=== PATIENT | male | born 1935 | race Caucasian/White ===

== ENCOUNTER 2021-08-22 15:53 | Inpatient (IN) | payer OTHER, MEDICARE ==
[~2021-08-22] VITALS: Ht 188 cm; Wt 82.4 kg
[2021-08-22 17:15] LABS: EOSINOPHILS % (AUTO) 0 % (0-6); LYMPHOCYTES # (AUTO) 0.4 X10'3 (1.1-4.8); MEAN CORPUSCULAR HGB CONC 33.9 g/dL (33.0-36.5); MONOCYTES # (AUTO) 0.3 X10'3 (0-0.9); RED BLOOD COUNT 3.35 X10'6 (4.70-6.10)
[2021-08-22 17:16] LABS: BASOPHILS % (AUTO) 0.3 % (0-1); HEMATOCRIT 36.8 % (42.0-52.0); HEMOGLOBIN 12.5 g/dl (14.0-17.9); LYMPHOCYTES % (AUTO) 6.4 % (21-51); MEAN CORPUSCULAR HEMOGLOBIN 37.2 PG (27.0-31.0); MEAN CORPUSCULAR VOLUME 109.9 FL (78-98); MEAN PLATELET VOLUME 9.8 FL (7.4-10.4); MONOCYTES % (AUTO) 6.1 % (2-12); NEUTROPHILS % (AUTO) 87.2 % (42-75); PLATELET COUNT 233 X10'3 (140-440); RED CELL DISTRIBUTION WIDTH 18.3 % (11.5-14.5); WHITE BLOOD COUNT 5.7 X10'3 (4.5-11.0)
[2021-08-22 17:36] LABS: ALANINE AMINOTRANSFERASE 46 U/L (12-78); ALBUMIN 3.2 G/DL (3.4-5.0); ALBUMIN/GLOBULIN RATIO 0.8 (1.1-1.5); ALKALINE PHOSPHATASE 147 IU/L (46-116); ANION GAP 12 (8-16); ASPARTATE AMINO TRANSFERASE 65 U/L (10-37); BILIRUBIN,TOTAL 1.7 MG/DL (0.1-1.0); BLOOD UREA NITROGEN 25 MG/DL (7-18); BUN/CREATININE RATIO 21.2 (5.4-32.0); CALCIUM 8.3 MG/DL (8.5-10.1); CHLORIDE 99 MMOL/L (99-107); CREATININE 1.18 MG/DL (0.60-1.10); GLUCOSE 108 MG/DL (70-104); MAGNESIUM 2.5 MG/DL (1.5-2.4); POTASSIUM 4.2 MMOL/L (3.5-5.1); SODIUM 132 MMOL/L (135-145); TOTAL CARBON DIOXIDE 21.2 MMOL/L (24-32); TOTAL PROTEIN 7.4 G/DL (6.4-8.2); eGFR 59 ML/MIN
[2021-08-22] MEDS ORDERED: dexamethasone sod phosphate 10mg/ml inj IV STA (17:48)
[2021-08-22] MEDS ORDERED: CefTRIAXone/D5W-Rocephin 1gm 50 ML IV ONE (17:50)
[2021-08-22] MEDS ORDERED: normal saline 1000ML IV soln IV ONE (17:50)
[2021-08-22] MEDS ORDERED: azithromycin/NS 500mg/250ml 250 ML IV ONE (17:50)
[2021-08-22 18:16] LABS: ANISOCYTOSIS 2+; HYPERSEGMENTED NEUTROPHILS 1+; PLATELET ESTIMATE NORMAL; TOTAL CELLS COUNTED 100
[2021-08-22 18:17] LABS: ELLIPTOCYTES FEW
[2021-08-22 18:28] LABS: LARGE PLATELETS FEW
[2021-08-22] MEDS ORDERED: potassium Cl 20 mEq SR tablet PO PRN ×2 (19:00)
[2021-08-22] MEDS ORDERED: acetaminophen 325mg tablet PO PRN (19:00)
[2021-08-22] MEDS ORDERED: magnesium 2GM in 50ml NS 50 ML IV PRN (19:00)
[2021-08-22] MEDS ORDERED: potassium CL 10mEq/100ml bag 100 ML IV PRN (19:00)
[2021-08-22] MEDS ORDERED: HYDROcodone/acetaminophen 5mg/325mg tablet PO PRN (19:00)
[2021-08-22] MEDS ORDERED: magnesium Cl slow-release 64mg tablet PO PRN (19:00)
[2021-08-22] MEDS ORDERED: ondansetron/PF 4mg/2ml inj IV PRN (19:00)
[2021-08-22] MEDS ORDERED: magnesium 4gm in 100ml NS 100 ML IV PRN (19:00)
[2021-08-22 19:36] LABS: ABG BASE EXCESS -0.6 mmol/L (-2.0-2.0); ABG HCO3 21.5 mmol/L (22.0-26.0); ABG OXYGEN SATURATION 89.1 % (94-97); ABG PCO2 (T) 28.4 mmHg (35.0-48.0); ABG PO2 (T) 57.1 mmHg (75.0-100.0); ALLEN'S TEST POSITIVE; FCOHb 0.7 % (0.0-3.9); FLOW 13 L/min; FMetHb 0.3 % (0.0-1.5); FO2Hb 88.2 % (94-97); PATIENT TEMPERATURE 37.8; TOTAL HEMOGLOBIN 10.3 G/dl (14.0-18.0)
--- NOTE | 2021-08-22 19:50 | NUR ---
CALLED DR OLVERA WITH BLOOD GAS REPORTS. HE GIVES ORDER FOR BIPAP AND A REDRAW OF BLOOD GASES 45 MINUTES AFTER PLACING PT ON BIPAP. RESPIRATORY HAS BEEN PAGED
[2021-08-22] MEDS ORDERED: albuterol 2.5 MG/3 ML nebule NEB SCH (20:00)
[2021-08-22] MEDS: K and/or MAG REPLACEMENT MC SCH (20:00)
[2021-08-22] MEDS ORDERED: dexamethasone 4mg/ml inj IV SCH (20:00)
--- NOTE | 2021-08-22 20:24 | NUR ---
RT at bedside
--- NOTE | 2021-08-22 21:44 | NUR ---
RT at bedside drawing new ABG's
[2021-08-22] MEDS: heparin, porcine 5000 units/ml vial SQ SCH (21:54)
[2021-08-22 21:57] LABS: ABG HCO3 20.9 mmol/L (22.0-26.0); ABG OXYGEN SATURATION 96.9 % (94-97); ABG PCO2 (T) 26.6 mmHg (35.0-48.0); ABG PO2 (T) 94.1 mmHg (75.0-100.0); ALLEN'S TEST POSITIVE; FCOHb 0.7 % (0.0-3.9); FMetHb 0.3 % (0.0-1.5); FO2Hb 95.9 % (94-97); PATIENT TEMPERATURE 36.6; RESPIRATORY RATE 12 b/min; TOTAL HEMOGLOBIN 12.3 G/dl (14.0-18.0)
--- NOTE | 2021-08-22 22:03 | NUR ---
SPOKE WITH DR OLVERA CONCERNING PT'S NEW BLOOD GAS. HE GAVE A VO FOR 0.5 MG ATIVAN FOR HYPERVENTILATION. HE ALSO ORDERED A NEW ABG TO BE DRAWN IN 6 HRS. HE ALSO ORDERED TO KEEP PT ON BIPAP FOR NOW.
[2021-08-22] MEDS ORDERED: LORazepam 2 mg/ml vial IV ONE (22:05)
[2021-08-23 01:07] LABS: ABG BASE EXCESS 0.3 mmol/L (-2.0-2.0); ABG HCO3 24.1 mmol/L (22.0-26.0); ABG OXYGEN SATURATION 95.9 % (94-97); ABG PCO2 (T) 35.7 mmHg (35.0-48.0); ABG PO2 (T) 88.4 mmHg (75.0-100.0); ALLEN'S TEST Yes; FCOHb 0.3 % (0.0-3.9); FMetHb 0.3 % (0.0-1.5); FO2Hb 95.3 % (94-97); PATIENT TEMPERATURE 37.2; RESPIRATORY RATE 12 b/min; TOTAL HEMOGLOBIN 10.1 G/dl (14.0-18.0)
--- NOTE | 2021-08-23 01:24 | NUR ---
REVIEWED NEW ABG'S WITH DR OLVERA
[2021-08-23 03:04] VITALS: BP 114/69
--- NOTE | 2021-08-23 04:00 | NUR ---
Dr. Aguayo ok with patient not being on bipap UNLESS patient's respirations are over 25 and he is working to breathe. then pt will need to go back on bipap. bedside saturation monitoring with VS machine at doorway to be able to hear alarm at station.
[2021-08-23 04:34] LABS: EOSINOPHILS % (AUTO) 0 % (0-6); HEMOGLOBIN 10.7 g/dl (14.0-17.9); LYMPHOCYTES # (AUTO) 0.2 X10'3 (1.1-4.8); MONOCYTES # (AUTO) 0.1 X10'3 (0-0.9); MONOCYTES % (AUTO) 5.7 % (2-12); NEUTROPHILS # (AUTO) 1.3 X10'3 (1.8-7.7); WHITE BLOOD COUNT 1.6 X10'3 (4.5-11.0)
[2021-08-23 04:37] LABS: BASOPHILS % (AUTO) 0.5 % (0-1); HEMATOCRIT 31.9 % (42.0-52.0); LYMPHOCYTES % (AUTO) 14.2 % (21-51); MEAN CORPUSCULAR HEMOGLOBIN 37.1 PG (27.0-31.0); MEAN CORPUSCULAR HGB CONC 33.5 g/dL (33.0-36.5); MEAN CORPUSCULAR VOLUME 110.8 FL (78-98); MEAN PLATELET VOLUME 10.4 FL (7.4-10.4); NEUTROPHILS % (AUTO) 79.6 % (42-75); PLATELET COUNT 134 X10'3 (140-440); RED BLOOD COUNT 2.88 X10'6 (4.70-6.10); RED CELL DISTRIBUTION WIDTH 18.2 % (11.5-14.5)
[2021-08-23 04:46] LABS: ALANINE AMINOTRANSFERASE 37 U/L (12-78); ALBUMIN 2.5 G/DL (3.4-5.0); ALBUMIN/GLOBULIN RATIO 0.7 (1.1-1.5); ALKALINE PHOSPHATASE 117 IU/L (46-116); ANION GAP 9 (8-16); ASPARTATE AMINO TRANSFERASE 49 U/L (10-37); BILIRUBIN,TOTAL 1.1 MG/DL (0.1-1.0); BLOOD UREA NITROGEN 25 MG/DL (7-18); BUN/CREATININE RATIO 22.5 (5.4-32.0); CALCIUM 7.8 MG/DL (8.5-10.1); CHLORIDE 102 MMOL/L (99-107); CREATININE 1.11 MG/DL (0.60-1.10); GLUCOSE 189 MG/DL (70-104); POTASSIUM 4.2 MMOL/L (3.5-5.1); SODIUM 134 MMOL/L (135-145); TOTAL CARBON DIOXIDE 23.2 MMOL/L (24-32); TOTAL PROTEIN 5.9 G/DL (6.4-8.2); eGFR 63 ML/MIN
[2021-08-23 05:20] LABS: PLATELET ESTIMATE DECREASED; TOTAL CELLS COUNTED 100
[2021-08-23 05:21] LABS: LARGE PLATELETS FEW
[2021-08-23 05:22] LABS: ANISOCYTOSIS 2+
[2021-08-23 05:23] LABS: ELLIPTOCYTES FEW
[2021-08-23 05:28] LABS: GIANT PLATELET FEW; HYPERSEGMENTED NEUTROPHILS FEW
[2021-08-23 06:00] VITALS: BP 99/46
[2021-08-23] MEDS: albuterol 60 PUFF/8GM Inhaler IH SCH ×5 (07:00→23:14)
[2021-08-23] MEDS: K and/or MAG REPLACEMENT MC SCH ×2 (08:00→20:01)
[2021-08-23] MEDS: dexamethasone 6 MG/D5W 100ml IV.soln (total 101.5ml) IV SCH ×4 (08:07→20:02)
[2021-08-23] MEDS: CefTRIAXone 2gm/D5W 50ml BAG 50 ML IV SCH (08:15)
[2021-08-23] MEDS: heparin, porcine 5000 units/ml vial SQ SCH ×2 (08:16→20:00)
[2021-08-23 10:00] VITALS: BP 111/59
[2021-08-23] MEDS: azithromycin/NS 500mg/250ml 250 ML IV SCH (10:09)
[2021-08-23] MEDS ORDERED: ACET-2119 PO (11:59)
[2021-08-23] MEDS ORDERED: GUAI600T45 PO (11:59)
[2021-08-23 14:00] VITALS: BP 111/59
--- NOTE | 2021-08-23 14:19 | NUR ---
Malnutrition Consult: Pt admit DX COVID-19, bilateral PNA, and CKD III per EMR. Pt reports 14-23 pounds wt loss per RN Malnutrition Screen though pt also poor historian per MD note. Pt has no scaled wt this admit or prior scaled wt hx in EMR, appears WD/WN per ER note, has no significant weakness, and PO 50% first heart healthy meal this admit per EMR. Pt currently lacks minimum two malnutrition criteria. DAVE did d/w RN regarding liberalizing to regular diet if MD agreeable given age and pt low Serum Na 132-134mmol/L this admit per EMR. Will monitor for further nutrition intervention needs. Addendum: 08/23/21 at [address] Amended: Links added. Addendum: 08/23/21 at [address] UPDATE* Also noted pt MCV 110.8; DAVE paged regarding multivitamin supplementation if agreeable.
[2021-08-23 18:00] VITALS: BP 105/59
--- NOTE | 2021-08-23 18:50 | NUR ---
Problems reprioritized. Patient report given, questions answered & plan of care reviewed with BRYSON Garcia.
[2021-08-23 22:00] VITALS: BP 118/58
[2021-08-24 02:00] VITALS: BP 107/60
[2021-08-24] MEDS: albuterol 60 PUFF/8GM Inhaler IH SCH ×6 (03:00→23:00)
[2021-08-24 06:00] VITALS: BP 99/53
[2021-08-24 07:28] LABS: ALANINE AMINOTRANSFERASE 36 U/L (12-78); ALBUMIN 2.1 G/DL (3.4-5.0); ALBUMIN/GLOBULIN RATIO 0.5 (1.1-1.5); ALKALINE PHOSPHATASE 100 IU/L (46-116); ANION GAP 7 (8-16); ASPARTATE AMINO TRANSFERASE 65 U/L (10-37); BILIRUBIN,TOTAL 0.7 MG/DL (0.1-1.0); BLOOD UREA NITROGEN 32 MG/DL (7-18); CHLORIDE 106 MMOL/L (99-107); GLUCOSE 120 MG/DL (70-104); POTASSIUM 5.4 MMOL/L (3.5-5.1); SODIUM 133 MMOL/L (135-145); TOTAL CARBON DIOXIDE 20.5 MMOL/L (24-32)
[2021-08-24 07:49] LABS: CREATININE 0.82 MG/DL (0.60-1.10); eGFR 89 ML/MIN
[2021-08-24] MEDS: K and/or MAG REPLACEMENT MC SCH ×2 (08:00→19:19)
[2021-08-24] MEDS: heparin, porcine 5000 units/ml vial SQ SCH ×2 (09:16→19:53)
[2021-08-24] MEDS: CefTRIAXone 2gm/D5W 50ml BAG 50 ML IV SCH (09:17)
[2021-08-24] MEDS: dexamethasone 6 MG/D5W 100ml IV.soln (total 101.5ml) IV SCH ×4 (09:17→19:53)
[2021-08-24] MEDS: azithromycin/NS 500mg/250ml 250 ML IV SCH (09:17)
[2021-08-24 13:31] LABS: BASOPHILS % (AUTO) 0.1 % (0-1); EOSINOPHILS % (AUTO) 0 % (0-6); HEMATOCRIT 33.9 % (42.0-52.0); HEMOGLOBIN 11.4 g/dl (14.0-17.9); LYMPHOCYTES # (AUTO) 0.3 X10'3 (1.1-4.8); LYMPHOCYTES % (AUTO) 2.8 % (21-51); MEAN CORPUSCULAR HGB CONC 33.6 g/dL (33.0-36.5); MEAN CORPUSCULAR VOLUME 110.1 FL (78-98); MEAN PLATELET VOLUME 10.6 FL (7.4-10.4); MONOCYTES # (AUTO) 0.3 X10'3 (0-0.9); MONOCYTES % (AUTO) 2.6 % (2-12); NEUTROPHILS # (AUTO) 9.7 X10'3 (1.8-7.7); NEUTROPHILS % (AUTO) 94.5 % (42-75); PLATELET COUNT 190 X10'3 (140-440); RED BLOOD COUNT 3.08 X10'6 (4.70-6.10); RED CELL DISTRIBUTION WIDTH 18.6 % (11.5-14.5); WHITE BLOOD COUNT 10.2 X10'3 (4.5-11.0)
[2021-08-24 14:00] VITALS: BP 115/60
[2021-08-24 15:17] LABS: ANISOCYTOSIS 2+; HYPERSEGMENTED NEUTROPHILS 2+; LARGE PLATELETS FEW; PLATELET ESTIMATE NORMAL; TOTAL CELLS COUNTED 100
[2021-08-24 15:18] LABS: BURR CELLS 1+
[2021-08-25] MEDS: albuterol 60 PUFF/8GM Inhaler IH SCH ×6 (03:00→23:00)
[2021-08-25 06:00] VITALS: BP 111/64
[2021-08-25 07:59] LABS: LYMPHOCYTES # (AUTO) 0.2 X10'3 (1.1-4.8); MONOCYTES # (AUTO) 0.2 X10'3 (0-0.9); WHITE BLOOD COUNT 4.8 X10'3 (4.5-11.0)
[2021-08-25] MEDS: K and/or MAG REPLACEMENT MC SCH ×2 (08:00→19:27)
[2021-08-25 08:01] LABS: BASOPHILS % (AUTO) 0.1 % (0-1); EOSINOPHILS % (AUTO) 0.1 % (0-6); HEMATOCRIT 28.6 % (42.0-52.0); HEMOGLOBIN 9.7 g/dl (14.0-17.9); LYMPHOCYTES % (AUTO) 3.6 % (21-51); MEAN CORPUSCULAR HEMOGLOBIN 37.7 PG (27.0-31.0); MEAN CORPUSCULAR HGB CONC 33.8 g/dL (33.0-36.5); MEAN CORPUSCULAR VOLUME 111.6 FL (78-98); MEAN PLATELET VOLUME 11.1 FL (7.4-10.4); MONOCYTES % (AUTO) 3.9 % (2-12); NEUTROPHILS # (AUTO) 4.5 X10'3 (1.8-7.7); NEUTROPHILS % (AUTO) 92.3 % (42-75); PLATELET COUNT 128 X10'3 (140-440); RED BLOOD COUNT 2.56 X10'6 (4.70-6.10); RED CELL DISTRIBUTION WIDTH 18.7 % (11.5-14.5)
[2021-08-25 08:18] LABS: ALANINE AMINOTRANSFERASE 53 U/L (12-78); ALBUMIN 2.3 G/DL (3.4-5.0); ALBUMIN/GLOBULIN RATIO 0.7 (1.1-1.5); ALKALINE PHOSPHATASE 108 IU/L (46-116); ANION GAP 8 (8-16); ASPARTATE AMINO TRANSFERASE 61 U/L (10-37); BILIRUBIN,TOTAL 0.8 MG/DL (0.1-1.0); BLOOD UREA NITROGEN 30 MG/DL (7-18); BUN/CREATININE RATIO 34.9 (5.4-32.0); CHLORIDE 105 MMOL/L (99-107); CREATININE 0.86 MG/DL (0.60-1.10); GLUCOSE 112 MG/DL (70-104); POTASSIUM 4.9 MMOL/L (3.5-5.1); SODIUM 138 MMOL/L (135-145); TOTAL CARBON DIOXIDE 24.8 MMOL/L (24-32); TOTAL PROTEIN 5.7 G/DL (6.4-8.2); eGFR 85 ML/MIN
[2021-08-25 09:19] LABS: ANISOCYTOSIS 2+; PLATELET ESTIMATE DECREASED; TOTAL CELLS COUNTED 100
[2021-08-25 09:20] LABS: HYPERSEGMENTED NEUTROPHILS 2+; LARGE PLATELETS FEW
[2021-08-25] MEDS: dexamethasone 6 MG/D5W 100ml IV.soln (total 101.5ml) IV SCH ×4 (09:35→21:37)
[2021-08-25] MEDS: azithromycin/NS 500mg/250ml 250 ML IV SCH (09:35)
[2021-08-25] MEDS: CefTRIAXone 2gm/D5W 50ml BAG 50 ML IV SCH (09:35)
[2021-08-25] MEDS: heparin, porcine 5000 units/ml vial SQ SCH ×2 (09:39→21:37)
[2021-08-25 10:00] VITALS: BP 91/55
--- NOTE | 2021-08-25 10:49 | NUR ---
Initial: Pt admit for COVID, bilat PNA, CKD III and elevated liver enzymes. Per MD progress note CKD resolved and elevated liver enzymes is improving. Patient's diet was appropriately liberalized to regular from heart healthy and pt eating well for age with average 50% PO intake, though not fully meeting estimated nutrient needs. Recommend Ensure Enlive TID to assist with meeting estimated nutrient needs, to be sent pending physician approval in EMR. LBM 08/24 documented as a smear. D/w dietary to send prunes and prune juice with next meal to assist with bowel regularity. Will continue to follow and monitor need for further nutrition intervention. Recommendations: 1) Continue regular diet 2) Ensure Enlive TIDWM, pending physician approval in EMR 3) MVI with physician approval in view of elevated MCV 4) Routine bowel care 5) Scaled weight this admit; weekly scaled weights thereafter Addendum: 08/25/21 at [address] Amended: Links added.
[2021-08-25] MEDS: lactose-reduced food (Ensure Enlive) - 237ml bottle PO SCH (13:00)
[2021-08-25 14:00] VITALS: BP 111/56
--- NOTE | 2021-08-25 16:58 | NUR ---
Updated plan of care with son over the phone. Patient is laying on side with encouragement.
--- NOTE | 2021-08-25 17:07 | NUR ---
Updated daughter Tamara over the phone. Patient helps turn side to side. Full wipe bath done, skin is intact.
[2021-08-25 18:00] VITALS: BP 107/65
--- NOTE | 2021-08-25 18:35 | NUR ---
Problems reprioritized. Patient report given, questions answered & plan of care reviewed with Cally RN.
[2021-08-25] MEDS: lactobacillus rhamnosus 10,000 MMU CELLS/CAPSULE PO SCH (21:37)
[2021-08-25 22:00] VITALS: BP 110/57
[2021-08-26 02:00] VITALS: BP 109/58
[2021-08-26] MEDS: albuterol 60 PUFF/8GM Inhaler IH SCH ×6 (02:32→23:00)
[2021-08-26 06:00] VITALS: BP 102/55
--- NOTE | 2021-08-26 06:00 | NUR ---
Stable throughout the shift. No complaints. O2 sats range from 88-92% on High flow & NRB
--- NOTE | 2021-08-26 06:20 | NUR ---
Change of shift report given to Abril MASSEY Addendum: 08/26/21 at 0631 by Cally Harp RN Amended: Links added.
--- NOTE | 2021-08-26 06:48 | NUR ---
Patient in room [facility]TH[facility] 4017. I have received report from BRYSON Alamo and had the opportunity to ask questions and assume patient care.
[2021-08-26 07:05] LABS: ALANINE AMINOTRANSFERASE 65 U/L (12-78); ALBUMIN 2.1 G/DL (3.4-5.0); ALBUMIN/GLOBULIN RATIO 0.7 (1.1-1.5); ALKALINE PHOSPHATASE 114 IU/L (46-116); ANION GAP 6 (8-16); ASPARTATE AMINO TRANSFERASE 64 U/L (10-37); BILIRUBIN,TOTAL 0.7 MG/DL (0.1-1.0); BLOOD UREA NITROGEN 28 MG/DL (7-18); BUN/CREATININE RATIO 34.6 (5.4-32.0); CALCIUM 8.1 MG/DL (8.5-10.1); CHLORIDE 103 MMOL/L (99-107); CREATININE 0.81 MG/DL (0.60-1.10); GLUCOSE 130 MG/DL (70-104); POTASSIUM 4.7 MMOL/L (3.5-5.1); SODIUM 135 MMOL/L (135-145); TOTAL CARBON DIOXIDE 25.8 MMOL/L (24-32); TOTAL PROTEIN 5.2 G/DL (6.4-8.2); eGFR > 90 ML/MIN
[2021-08-26] MEDS: lactobacillus rhamnosus 10,000 MMU CELLS/CAPSULE PO SCH ×2 (07:20→21:00)
[2021-08-26] MEDS: dexamethasone 6 MG/D5W 100ml IV.soln (total 101.5ml) IV SCH ×2 (07:21)
[2021-08-26] MEDS: heparin, porcine 5000 units/ml vial SQ SCH (07:22)
[2021-08-26] MEDS: lactose-reduced food (Ensure Enlive) - 237ml bottle PO SCH ×3 (08:00→18:00)
[2021-08-26] MEDS: K and/or MAG REPLACEMENT MC SCH ×2 (08:00→19:38)
[2021-08-26 08:29] LABS: HEMATOCRIT 25.8 % (42.0-52.0); HEMOGLOBIN 8.9 g/dl (14.0-17.9); LYMPHOCYTES # (AUTO) 0.2 X10'3 (1.1-4.8); MONOCYTES # (AUTO) 0.2 X10'3 (0-0.9); RED BLOOD COUNT 2.33 X10'6 (4.70-6.10)
[2021-08-26 08:31] LABS: BASOPHILS % (AUTO) 0.2 % (0-1); EOSINOPHILS % (AUTO) 0.1 % (0-6); LYMPHOCYTES % (AUTO) 4.7 % (21-51); MEAN CORPUSCULAR HGB CONC 34.3 g/dL (33.0-36.5); MEAN CORPUSCULAR VOLUME 110.8 FL (78-98); MEAN PLATELET VOLUME 10.6 FL (7.4-10.4); MONOCYTES % (AUTO) 4.3 % (2-12); NEUTROPHILS # (AUTO) 3.9 X10'3 (1.8-7.7); NEUTROPHILS % (AUTO) 90.7 % (42-75); PLATELET COUNT 102 X10'3 (140-440); RED CELL DISTRIBUTION WIDTH 18.1 % (11.5-14.5); WHITE BLOOD COUNT 4.3 X10'3 (4.5-11.0)
[2021-08-26 08:40] LABS: ANISOCYTOSIS 2+; ELLIPTOCYTES FEW; PLATELET ESTIMATE DECREASED; SCHISTOCYTES FEW; TEAR DROP CELLS 1+; TOTAL CELLS COUNTED 100
[2021-08-26 08:41] LABS: LARGE PLATELETS FEW
[2021-08-26] MEDS: CefTRIAXone 2gm/D5W 50ml BAG 50 ML IV SCH (08:44)
[2021-08-26] MEDS ORDERED: ALBUTEROL INHALER 1 PUFF/90 MCG INHALER IH PRN (09:50)
[2021-08-26 10:00] VITALS: BP 98/54
[2021-08-26 10:37] LABS: D-DIMER 1.59 MG/L FEU (0-0.50)
[2021-08-26] MEDS: azithromycin/NS 500mg/250ml 250 ML IV SCH (11:09)
[2021-08-26] MEDS ORDERED: methylPREDNISolone sod succ 125mg/2ml vial IV ONE (16:15)
--- NOTE | 2021-08-26 18:17 | NUR ---
Problems reprioritized. Patient report given, questions answered & plan of care reviewed with BRYSON Alamo.
[2021-08-26] MEDS: enoxaparin 40mg/0.4ml syringe SUBCUT SCH (20:00)
--- NOTE | 2021-08-26 20:07 | NUR ---
Pt's platelets dropped to 102 from [address] Henderson regarding fozia's Lovenox dose. Orders received to hold Lovenox for fozia and have the nurse in the morning contact the doctor on the day shift to decide on whether to continue the Lovenox BID or QD
[2021-08-26 22:00] VITALS: BP 115/65
[2021-08-27] MEDS: methylPREDNISolone sod succ/PF 40mg inj. IV SCH ×3 (00:19→16:06)
[2021-08-27] MEDS: albuterol 60 PUFF/8GM Inhaler IH SCH ×6 (03:00→20:10)
[2021-08-27 06:00] VITALS: BP 116/56
--- NOTE | 2021-08-27 06:35 | NUR ---
Change of shift report given to Abirl MASSEY Addendum: 08/27/21 at 0635 by Cally Hapr RN Amended: Links added.
--- NOTE | 2021-08-27 06:51 | NUR ---
Patient in room [facility]TH[facility] 4017. I have received report from BRYSON Alamo and had the opportunity to ask questions and assume patient care.
[2021-08-27 07:45] LABS: C-REACTIVE PROTEIN 2.74 MG/DL (0.0-0.5)
[2021-08-27] MEDS: K and/or MAG REPLACEMENT MC SCH ×2 (08:00→19:00)
[2021-08-27] MEDS: lactose-reduced food (Ensure Enlive) - 237ml bottle PO SCH ×3 (08:00→18:01)
[2021-08-27] MEDS: CefTRIAXone 2gm/D5W 50ml BAG 50 ML IV SCH (08:31)
[2021-08-27] MEDS: enoxaparin 40mg/0.4ml syringe SUBCUT SCH ×2 (08:34→19:39)
[2021-08-27] MEDS: lactobacillus rhamnosus 10,000 MMU CELLS/CAPSULE PO SCH ×2 (08:34→19:39)
[2021-08-27 18:00] VITALS: BP 111/72
--- NOTE | 2021-08-27 18:06 | NUR ---
Problems reprioritized. Patient report given, questions answered & plan of care reviewed with BRYSON Soto.
[2021-08-27 22:00] VITALS: BP 117/66
[2021-08-28 02:00] VITALS: BP 116/70
[2021-08-28] MEDS: albuterol 60 PUFF/8GM Inhaler IH SCH ×6 (03:00→23:00)
[2021-08-28 06:00] VITALS: BP 116/64
--- NOTE | 2021-08-28 06:39 | NUR ---
Patient in room [facility]TH[facility] 4017. I have received report from BRYSON DUNLAP and had the opportunity to ask questions and assume patient care.
[2021-08-28 06:54] LABS: D-DIMER 1.75 MG/L FEU (0-0.50)
[2021-08-28 07:12] LABS: BASOPHILS % (AUTO) 0.2 % (0-1); EOSINOPHILS % (AUTO) 0.1 % (0-6); HEMATOCRIT 30.8 % (42.0-52.0); HEMOGLOBIN 10.3 g/dl (14.0-17.9); LYMPHOCYTES # (AUTO) 0.3 X10'3 (1.1-4.8); LYMPHOCYTES % (AUTO) 2.2 % (21-51); MEAN CORPUSCULAR HEMOGLOBIN 36.8 PG (27.0-31.0); MEAN CORPUSCULAR HGB CONC 33.5 g/dL (33.0-36.5); MEAN CORPUSCULAR VOLUME 109.7 FL (78-98); MEAN PLATELET VOLUME 10.7 FL (7.4-10.4); MONOCYTES # (AUTO) 0.4 X10'3 (0-0.9); MONOCYTES % (AUTO) 3.2 % (2-12); NEUTROPHILS # (AUTO) 11.4 X10'3 (1.8-7.7); NEUTROPHILS % (AUTO) 94.3 % (42-75); PLATELET COUNT 146 X10'3 (140-440); RED BLOOD COUNT 2.81 X10'6 (4.70-6.10); RED CELL DISTRIBUTION WIDTH 17.9 % (11.5-14.5); WHITE BLOOD COUNT 12.1 X10'3 (4.5-11.0)
[2021-08-28 07:14] LABS: ALANINE AMINOTRANSFERASE 73 U/L (12-78); ALBUMIN 2.1 G/DL (3.4-5.0); ALBUMIN/GLOBULIN RATIO 0.6 (1.1-1.5); ALKALINE PHOSPHATASE 128 IU/L (46-116); ANION GAP 3 (8-16); ASPARTATE AMINO TRANSFERASE 61 U/L (10-37); BILIRUBIN,TOTAL 0.8 MG/DL (0.1-1.0); BLOOD UREA NITROGEN 36 MG/DL (7-18); BUN/CREATININE RATIO 47.4 (5.4-32.0); C-REACTIVE PROTEIN 2.01 MG/DL (0.0-0.5); CALCIUM 8.1 MG/DL (8.5-10.1); CHLORIDE 105 MMOL/L (99-107); CREATININE 0.76 MG/DL (0.60-1.10); GLUCOSE 112 MG/DL (70-104); SODIUM 137 MMOL/L (135-145); TOTAL PROTEIN 5.7 G/DL (6.4-8.2); eGFR > 90 ML/MIN
[2021-08-28 07:53] LABS: ANISOCYTOSIS 1+; PLATELET ESTIMATE NORMAL; TOTAL CELLS COUNTED 100
[2021-08-28 07:54] LABS: POLYCHROMASIA FEW
[2021-08-28 07:56] LABS: ELLIPTOCYTES FEW; SCHISTOCYTES FEW; TEAR DROP CELLS FEW
[2021-08-28] MEDS: K and/or MAG REPLACEMENT MC SCH ×2 (08:00→19:31)
[2021-08-28] MEDS: lactose-reduced food (Ensure Enlive) - 237ml bottle PO SCH ×3 (08:00→18:00)
[2021-08-28] MEDS: CefTRIAXone 2gm/D5W 50ml BAG 50 ML IV SCH (09:28)
[2021-08-28] MEDS: methylPREDNISolone sod succ/PF 40mg inj. IV SCH ×4 (09:30→23:56)
[2021-08-28] MEDS: enoxaparin 40mg/0.4ml syringe SUBCUT SCH ×2 (09:30→19:27)
[2021-08-28] MEDS: lactobacillus rhamnosus 10,000 MMU CELLS/CAPSULE PO SCH ×2 (09:31→19:27)
[2021-08-28 10:00] VITALS: BP 135/75
[2021-08-28] MEDS ORDERED: salt irrigation nasal spray 45 ML SPRAY NS PRN (14:50)
[2021-08-28 18:00] VITALS: BP 103/65
--- NOTE | 2021-08-28 18:19 | NUR ---
Problems reprioritized. Patient report given, questions answered & plan of care reviewed with BRYSON DUNLAP.
[2021-08-28 22:00] VITALS: BP 110/74
[2021-08-29 02:02] VITALS: BP 101/60
[2021-08-29] MEDS: albuterol 60 PUFF/8GM Inhaler IH SCH ×4 (02:23→15:00)
[2021-08-29 06:00] VITALS: BP 114/70
[2021-08-29] MEDS: CefTRIAXone 2gm/D5W 50ml BAG 50 ML IV SCH (07:55)
[2021-08-29] MEDS: methylPREDNISolone sod succ/PF 40mg inj. IV SCH ×2 (07:55→16:43)
[2021-08-29] MEDS: lactose-reduced food (Ensure Enlive) - 237ml bottle PO SCH ×3 (08:00→18:00)
[2021-08-29] MEDS: fluticasone nasal spray 16GM bottle NS SCH (08:00)
[2021-08-29] MEDS: enoxaparin 40mg/0.4ml syringe SUBCUT SCH ×2 (08:00→20:25)
[2021-08-29] MEDS: K and/or MAG REPLACEMENT MC SCH ×2 (08:00→20:00)
[2021-08-29] MEDS: lactobacillus rhamnosus 10,000 MMU CELLS/CAPSULE PO SCH ×2 (08:00→20:00)
[2021-08-29 09:03] LABS: ALANINE AMINOTRANSFERASE 72 U/L (12-78); ALBUMIN 2.1 G/DL (3.4-5.0); ALBUMIN/GLOBULIN RATIO 0.6 (1.1-1.5); ALKALINE PHOSPHATASE 130 IU/L (46-116); ANION GAP 6 (8-16); ASPARTATE AMINO TRANSFERASE 56 U/L (10-37); BLOOD UREA NITROGEN 38 MG/DL (7-18); BUN/CREATININE RATIO 44.2 (5.4-32.0); C-REACTIVE PROTEIN 6.43 MG/DL (0.0-0.5); CALCIUM 8.1 MG/DL (8.5-10.1); CHLORIDE 103 MMOL/L (99-107); CREATININE 0.86 MG/DL (0.60-1.10); GLUCOSE 111 MG/DL (70-104); POTASSIUM 5.2 MMOL/L (3.5-5.1); SODIUM 137 MMOL/L (135-145); TOTAL CARBON DIOXIDE 27.6 MMOL/L (24-32); TOTAL PROTEIN 5.6 G/DL (6.4-8.2); eGFR 85 ML/MIN
[2021-08-29 09:48] LABS: BASOPHILS % (AUTO) 0.2 % (0-1); EOSINOPHILS % (AUTO) 0 % (0-6); HEMATOCRIT 32.2 % (42.0-52.0); HEMOGLOBIN 10.8 g/dl (14.0-17.9); LYMPHOCYTES # (AUTO) 0.2 X10'3 (1.1-4.8); MEAN CORPUSCULAR HEMOGLOBIN 36.6 PG (27.0-31.0); MEAN CORPUSCULAR HGB CONC 33.4 g/dL (33.0-36.5); MEAN CORPUSCULAR VOLUME 109.3 FL (78-98); MEAN PLATELET VOLUME 10.1 FL (7.4-10.4); MONOCYTES # (AUTO) 0.2 X10'3 (0-0.9); MONOCYTES % (AUTO) 2.5 % (2-12); NEUTROPHILS # (AUTO) 8.5 X10'3 (1.8-7.7); NEUTROPHILS % (AUTO) 95.3 % (42-75); RED BLOOD COUNT 2.94 X10'6 (4.70-6.10); RED CELL DISTRIBUTION WIDTH 18.5 % (11.5-14.5); WHITE BLOOD COUNT 8.9 X10'3 (4.5-11.0)
[2021-08-29 09:50] LABS: D-DIMER 2.12 MG/L FEU (0-0.50)
[2021-08-29 10:00] VITALS: BP 115/64
--- NOTE | 2021-08-29 14:59 | NUR ---
Reassessment: Pt now on a heart healthy diet and PO intake has declined to average 45% PO intake of meals though with mostly 100% PO intake of Ensure Enlive TID meeting estimated nutrient needs. Noted PO intake down to 0% at two most recent meals and pt not consuming ONS d/t inability to swallow. TC to RN to determine need for BSS, per RN it's not that pt has difficultly swallowing rather pt unable to take PO intake at this time d/t respiratory requirements as pt unable to take off BiPAP. D/w RN recommendation for nutrition support if respiratory requirements continue to inhibit PO intake. LBM 08/28. Will continue to follow closely and make recommendations as appropriate. Recommendations: 1) Liberalize to regular diet in view of no significant PMH and geriatric age 2) Ensure Enlive TIDWM 3) Consider nutrition support IF pt unable to tolerate PO intake d/t respiratory requirements 4) MVI with physician approval in view of elevated MCV 5) Routine bowel care 6) Scaled weight this admit; weekly scaled weights thereafter Addendum: 08/29/21 at [address] Amended: Links added.
[2021-08-29] MEDS ORDERED: albuterol 2.5 MG/3 ML nebule NEB PRN (15:25)
[2021-08-29 18:00] VITALS: BP 106/74
--- NOTE | 2021-08-29 18:10 | NUR ---
Patient in room [facility]TH[facility] 4017. I have received report from BRYSON Cordova and had the opportunity to ask questions and assume patient care.
[2021-08-29] MEDS: ipratropium/albuterol 3ml nebule NEB SCH (20:56)
[2021-08-29 22:00] VITALS: BP 141/59
[2021-08-30] MEDS: methylPREDNISolone sod succ/PF 40mg inj. IV SCH ×3 (00:11→16:02)
[2021-08-30 02:00] VITALS: BP 110/69
[2021-08-30] MEDS: ipratropium/albuterol 3ml nebule NEB SCH ×4 (03:43→22:27)
[2021-08-30 06:00] VITALS: BP_SYST 110; BP_DIAS 51; BP_DIAS 68
--- NOTE | 2021-08-30 06:17 | NUR ---
Problems reprioritized. Patient report given, questions answered & plan of care reviewed with BRYSON Painter.
[2021-08-30] MEDS: K and/or MAG REPLACEMENT MC SCH ×2 (08:00→20:00)
[2021-08-30] MEDS: lactose-reduced food (Ensure Enlive) - 237ml bottle PO SCH ×3 (08:00→17:56)
[2021-08-30] MEDS: fluticasone nasal spray 16GM bottle NS SCH (08:00)
[2021-08-30] MEDS: lactobacillus rhamnosus 10,000 MMU CELLS/CAPSULE PO SCH ×2 (08:00→20:00)
[2021-08-30 08:18] LABS: EOSINOPHILS % (AUTO) 0 % (0-6); HEMATOCRIT 32.1 % (42.0-52.0); LYMPHOCYTES # (AUTO) 0.2 X10'3 (1.1-4.8); MEAN CORPUSCULAR HGB CONC 33.8 g/dL (33.0-36.5); MONOCYTES # (AUTO) 0.2 X10'3 (0-0.9); RED CELL DISTRIBUTION WIDTH 18.6 % (11.5-14.5); WHITE BLOOD COUNT 7.8 X10'3 (4.5-11.0)
[2021-08-30 08:20] LABS: BASOPHILS % (AUTO) 0.6 % (0-1); HEMOGLOBIN 10.9 g/dl (14.0-17.9); LYMPHOCYTES % (AUTO) 2.1 % (21-51); MEAN PLATELET VOLUME 10.9 FL (7.4-10.4); MONOCYTES % (AUTO) 2.2 % (2-12); NEUTROPHILS # (AUTO) 7.5 X10'3 (1.8-7.7); NEUTROPHILS % (AUTO) 95.1 % (42-75); PLATELET COUNT 157 X10'3 (140-440); RED BLOOD COUNT 2.94 X10'6 (4.70-6.10)
[2021-08-30 08:21] LABS: ALANINE AMINOTRANSFERASE 47 U/L (12-78); ALBUMIN/GLOBULIN RATIO 0.5 (1.1-1.5); ALKALINE PHOSPHATASE 105 IU/L (46-116); ANION GAP 5 (8-16); ASPARTATE AMINO TRANSFERASE 37 U/L (10-37); BILIRUBIN,TOTAL 1.1 MG/DL (0.1-1.0); BLOOD UREA NITROGEN 48 MG/DL (7-18); C-REACTIVE PROTEIN 9.04 MG/DL (0.0-0.5); CALCIUM 7.5 MG/DL (8.5-10.1); CHLORIDE 107 MMOL/L (99-107); GLUCOSE 112 MG/DL (70-104); POTASSIUM 5.4 MMOL/L (3.5-5.1); SODIUM 140 MMOL/L (135-145); TOTAL CARBON DIOXIDE 28.4 MMOL/L (24-32); TOTAL PROTEIN 5.7 G/DL (6.4-8.2); eGFR > 90 ML/MIN
[2021-08-30 08:47] LABS: MEAN CORPUSCULAR HEMOGLOBIN 36.8 PG (27.0-31.0); MEAN CORPUSCULAR VOLUME 108.7 FL (78-98)
[2021-08-30] MEDS: enoxaparin 40mg/0.4ml syringe SUBCUT SCH ×2 (08:57→21:28)
[2021-08-30] MEDS: morphine 2 MG/ML inj. syringe IV PRN (09:07)
[2021-08-30 09:27] LABS: D-DIMER 2.09 MG/L FEU (0-0.50)
[2021-08-30 10:00] VITALS: BP_SYST 116; BP_SYST 117; BP_DIAS 50; BP_DIAS 67
[2021-08-30 17:00] VITALS: BP 111/71
--- NOTE | 2021-08-30 18:15 | NUR ---
Patient in room [facility]TH[facility] 4017. I have received report from BRYSON Painter and had the opportunity to ask questions and assume patient care.
[2021-08-30 21:00] VITALS: BP 109/69
[2021-08-31] MEDS: methylPREDNISolone sod succ/PF 40mg inj. IV SCH ×3 (00:07→16:39)
[2021-08-31 02:00] VITALS: BP 110/69
[2021-08-31] MEDS: ipratropium/albuterol 3ml nebule NEB SCH ×4 (03:38→21:00)
[2021-08-31 06:00] VITALS: BP 116/71
--- NOTE | 2021-08-31 06:47 | NUR ---
Problems reprioritized. Patient report given, questions answered & plan of care reviewed with BRYSON Sanchez.
[2021-08-31] MEDS: K and/or MAG REPLACEMENT MC SCH ×2 (08:00→20:00)
[2021-08-31] MEDS: lactose-reduced food (Ensure Enlive) - 237ml bottle PO SCH ×3 (08:00→18:07)
[2021-08-31 08:22] LABS: BASOPHILS % (AUTO) 0.1 % (0-1); EOSINOPHILS % (AUTO) 0 % (0-6); HEMATOCRIT 32.6 % (42.0-52.0); HEMOGLOBIN 11.2 g/dl (14.0-17.9); LYMPHOCYTES # (AUTO) 0.3 X10'3 (1.1-4.8); LYMPHOCYTES % (AUTO) 4.4 % (21-51); MEAN CORPUSCULAR HEMOGLOBIN 37.8 PG (27.0-31.0); MEAN CORPUSCULAR HGB CONC 34.4 g/dL (33.0-36.5); MEAN CORPUSCULAR VOLUME 109.9 FL (78-98); MEAN PLATELET VOLUME 10.7 FL (7.4-10.4); MONOCYTES # (AUTO) 0.2 X10'3 (0-0.9); MONOCYTES % (AUTO) 3.4 % (2-12); NEUTROPHILS # (AUTO) 5.8 X10'3 (1.8-7.7); NEUTROPHILS % (AUTO) 92.1 % (42-75); PLATELET COUNT 233 X10'3 (140-440); RED BLOOD COUNT 2.96 X10'6 (4.70-6.10); RED CELL DISTRIBUTION WIDTH 18.7 % (11.5-14.5); WHITE BLOOD COUNT 6.3 X10'3 (4.5-11.0)
[2021-08-31] MEDS: enoxaparin 40mg/0.4ml syringe SUBCUT SCH ×2 (08:24→20:00)
[2021-08-31] MEDS: lactobacillus rhamnosus 10,000 MMU CELLS/CAPSULE PO SCH ×2 (08:24→20:00)
[2021-08-31 08:38] LABS: ALANINE AMINOTRANSFERASE 40 U/L (12-78); ALBUMIN/GLOBULIN RATIO 0.5 (1.1-1.5); ALKALINE PHOSPHATASE 96 IU/L (46-116); ANION GAP 5 (8-16); ASPARTATE AMINO TRANSFERASE 35 U/L (10-37); BILIRUBIN,TOTAL 1.2 MG/DL (0.1-1.0); BLOOD UREA NITROGEN 67 MG/DL (7-18); BUN/CREATININE RATIO 69.1 (5.4-32.0); C-REACTIVE PROTEIN 8.18 MG/DL (0.0-0.5); CALCIUM 7.6 MG/DL (8.5-10.1); CHLORIDE 106 MMOL/L (99-107); CREATININE 0.97 MG/DL (0.60-1.10); GLUCOSE 115 MG/DL (70-104); POTASSIUM 5.4 MMOL/L (3.5-5.1); SODIUM 138 MMOL/L (135-145); TOTAL PROTEIN 5.8 G/DL (6.4-8.2); eGFR 74 ML/MIN
[2021-08-31 08:55] LABS: ANISOCYTOSIS 2+; PLATELET ESTIMATE NORMAL
[2021-08-31 08:56] LABS: ELLIPTOCYTES FEW; SCHISTOCYTES FEW
[2021-08-31] MEDS: fluticasone nasal spray 16GM bottle NS SCH (09:00)
[2021-08-31 09:01] LABS: D-DIMER 2.25 MG/L FEU (0-0.50)
[2021-08-31 10:00] VITALS: BP 119/76
--- NOTE | 2021-08-31 12:25 | NUR ---
Reassessment: Pt PO intake 0% since dinner 08/28; PO intake at breakfast 08/31 25% of heart healthy diet and 50% ONS; not meeting estimated nutritional needs. PO trends likely due to pt continued respiratory requirements. internal specialist d/w RN pt poor PO intake; RN stated BiPAP was removed and pt placed on HFNC; RN stated pt endorses hunger and is able to chew and swallow but is experiencing SOB while chewing. D/w dietary to provide soft to chew food and chop all meals. D/w RN recommendation for nutritional support should PO trends again decline. LBM 08/31. Will continue to follow closely and make recommendations as appropriate. Recommendations: 1) Liberalize to regular diet in view of no significant PMH and geriatric age 2) Chop all and soft to chew foods 3) Ensure Enlive TIDWM 4) Encourage PO intake 5)Consider nutrition support IF pt unable to tolerate PO intake d/t respiratory requirements 6) MVI with physician approval in view of elevated MCV 7) Routine bowel care 8) Scaled weight this admit; weekly scaled weights thereafter Addendum: 08/31/21 at 1225 by Fab Conklin - [employer]board [employer] Rigger RD Amended: Links added. Addendum: 01/28/22 at [address] I have reviewed and agree with note by rn internshipElías Carey RD
[2021-08-31 14:00] VITALS: BP 104/60
--- NOTE | 2021-08-31 16:11 | NUR ---
pt placed back on cpap for o2 saturation in the high 70's. pt coughing up alot of dark brown sputum.
[2021-08-31 17:00] VITALS: BP 95/65
[2021-08-31 22:00] VITALS: BP 120/74
[2021-09-01] MEDS: methylPREDNISolone sod succ/PF 40mg inj. IV SCH ×3 (01:00→16:00)
[2021-09-01 02:00] VITALS: BP 110/61
[2021-09-01] MEDS: ipratropium/albuterol 3ml nebule NEB SCH ×4 (02:07→20:03)
[2021-09-01 06:00] VITALS: BP 112/71
--- NOTE | 2021-09-01 07:06 | NUR ---
Problems reprioritized. Patient report given, questions answered & plan of care reviewed with shakir.
[2021-09-01] MEDS: lactobacillus rhamnosus 10,000 MMU CELLS/CAPSULE PO SCH ×2 (07:31→20:18)
[2021-09-01] MEDS: fluticasone nasal spray 16GM bottle NS SCH (07:31)
[2021-09-01] MEDS: enoxaparin 40mg/0.4ml syringe SUBCUT SCH ×2 (08:00→20:21)
[2021-09-01] MEDS: K and/or MAG REPLACEMENT MC SCH ×2 (08:00→19:48)
[2021-09-01] MEDS: lactose-reduced food (Ensure Enlive) - 237ml bottle PO SCH ×3 (08:00→18:00)
[2021-09-01 09:05] LABS: MEAN PLATELET VOLUME 10.8 FL (7.4-10.4)
[2021-09-01 09:08] LABS: PLATELET COUNT 225 X10'3 (140-440)
[2021-09-01 09:20] LABS: D-DIMER 2.05 MG/L FEU (0-0.50)
[2021-09-01 09:30] LABS: ALANINE AMINOTRANSFERASE 44 U/L (12-78); ALBUMIN/GLOBULIN RATIO 0.5 (1.1-1.5); ALKALINE PHOSPHATASE 109 IU/L (46-116); ANION GAP 9 (8-16); ASPARTATE AMINO TRANSFERASE 49 U/L (10-37); BILIRUBIN,TOTAL 1.5 MG/DL (0.1-1.0); BLOOD UREA NITROGEN 67 MG/DL (7-18); C-REACTIVE PROTEIN 6.67 MG/DL (0.0-0.5); CALCIUM 7.9 MG/DL (8.5-10.1); CHLORIDE 103 MMOL/L (99-107); CREATININE 0.87 MG/DL (0.60-1.10); GLUCOSE 126 MG/DL (70-104); POTASSIUM 5.3 MMOL/L (3.5-5.1); SODIUM 136 MMOL/L (135-145); TOTAL CARBON DIOXIDE 23.9 MMOL/L (24-32); TOTAL PROTEIN 5.7 G/DL (6.4-8.2); eGFR 83 ML/MIN
[2021-09-01 09:51] LABS: HEMATOCRIT 34.7 % (42.0-52.0); HEMOGLOBIN 11.3 g/dl (14.0-17.9); MEAN CORPUSCULAR VOLUME 109.8 FL (78-98); RED BLOOD COUNT 3.16 X10'6 (4.70-6.10); WHITE BLOOD COUNT 10.8 X10'3 (4.5-11.0)
[2021-09-01 09:52] LABS: MEAN CORPUSCULAR HEMOGLOBIN 35.7 PG (27.0-31.0); MEAN CORPUSCULAR HGB CONC 32.5 g/dL (33.0-36.5); RED CELL DISTRIBUTION WIDTH 18.3 % (11.5-14.5)
[2021-09-01 10:16] LABS: PLATELET ESTIMATE NORMAL; TOTAL CELLS COUNTED 100
[2021-09-01 10:17] LABS: ANISOCYTOSIS 2+; ELLIPTOCYTES FEW; SCHISTOCYTES FEW
[2021-09-01 18:00] VITALS: BP 127/74
[2021-09-01 22:00] VITALS: BP 119/79
[2021-09-02] MEDS: methylPREDNISolone sod succ/PF 40mg inj. IV SCH ×4 (00:06→23:36)
--- NOTE | 2021-09-02 00:18 | NUR ---
Patient resting in bed comfortable. Currently on BIPAP saturations @ 94%. Repositioned at turned from side to side. Optifoam to sacrum. Skin breakdown noted to nose. No complaints of pain. Will continue to monitor.
[2021-09-02 02:00] VITALS: BP 112/74
[2021-09-02] MEDS: ipratropium/albuterol 3ml nebule NEB SCH ×4 (02:34→20:54)
[2021-09-02 06:00] VITALS: BP 122/73
--- NOTE | 2021-09-02 06:55 | NUR ---
Patient in room [facility]TH[facility] 4017. I have received report from BRYSON ELIZABETH, and had the opportunity to ask questions and assume patient care.
[2021-09-02] MEDS: K and/or MAG REPLACEMENT MC SCH ×2 (08:00→20:00)
[2021-09-02] MEDS: lactose-reduced food (Ensure Enlive) - 237ml bottle PO SCH ×3 (08:00→18:00)
[2021-09-02] MEDS: lactobacillus rhamnosus 10,000 MMU CELLS/CAPSULE PO SCH ×2 (08:44→19:51)
[2021-09-02] MEDS: fluticasone nasal spray 16GM bottle NS SCH (08:45)
[2021-09-02] MEDS: enoxaparin 40mg/0.4ml syringe SUBCUT SCH ×2 (08:45→19:52)
[2021-09-02 10:00] VITALS: BP 116/71
--- NOTE | 2021-09-02 10:20 | NUR ---
TPN consult: Pt on BiPAP at 100% and refusing meals per EMR, to start TPN per MD though no PICC in place per RN. Recommendations below for when pt receives PICC, d/w pharmacist. Using non-E formula at this time given consistently elevated potassium. Unable to meet minimum protein needs w/ this high dextrose formula. Recommendations: 1) Continuous TPN per MD using 2:1 Clinimix non-E 5/20 at 88ml/hr w/ additional 250ml 20% lipids to run for 20.8ml/hr for 12hr 2x/week. In total to provide 2183ml avg volume/day, avg 2000kcals, 105g AA, 422g dextrose (3.56mg/kg/min GIR). 2) Regular diet if diet to advance; chop all foods 3) Bowel care per rx 4) Scaled weight this admit; weekly scaled weights thereafter Addendum: 09/02/21 at [address] Amended: Links added.
[2021-09-02 13:36] LABS: BASOPHILS % (AUTO) 0.1 % (0-1); EOSINOPHILS % (AUTO) 0 % (0-6); HEMATOCRIT 35.1 % (42.0-52.0); HEMOGLOBIN 11.6 g/dl (14.0-17.9); LYMPHOCYTES # (AUTO) 0.2 X10'3 (1.1-4.8); LYMPHOCYTES % (AUTO) 1.3 % (21-51); MEAN CORPUSCULAR HEMOGLOBIN 35.9 PG (27.0-31.0); MEAN CORPUSCULAR HGB CONC 33.1 g/dL (33.0-36.5); MEAN CORPUSCULAR VOLUME 108.5 FL (78-98); MEAN PLATELET VOLUME 10.5 FL (7.4-10.4); MONOCYTES # (AUTO) 0.2 X10'3 (0-0.9); MONOCYTES % (AUTO) 1.2 % (2-12); NEUTROPHILS # (AUTO) 15.1 X10'3 (1.8-7.7); NEUTROPHILS % (AUTO) 97.4 % (42-75); PLATELET COUNT 199 X10'3 (140-440); RED BLOOD COUNT 3.23 X10'6 (4.70-6.10); RED CELL DISTRIBUTION WIDTH 18.2 % (11.5-14.5); WHITE BLOOD COUNT 15.5 X10'3 (4.5-11.0)
[2021-09-02 13:49] LABS: D-DIMER 1.37 MG/L FEU (0-0.50)
[2021-09-02 13:53] LABS: ALANINE AMINOTRANSFERASE 33 U/L (12-78); ALBUMIN/GLOBULIN RATIO 0.5 (1.1-1.5); ALKALINE PHOSPHATASE 91 IU/L (46-116); ANION GAP 3 (8-16); ASPARTATE AMINO TRANSFERASE 28 U/L (10-37); BILIRUBIN,TOTAL 1.2 MG/DL (0.1-1.0); BLOOD UREA NITROGEN 75 MG/DL (7-18); BUN/CREATININE RATIO 87.2 (5.4-32.0); CALCIUM 7.8 MG/DL (8.5-10.1); CHLORIDE 105 MMOL/L (99-107); CREATININE 0.86 MG/DL (0.60-1.10); GLUCOSE 135 MG/DL (70-104); POTASSIUM 5.1 MMOL/L (3.5-5.1); SODIUM 136 MMOL/L (135-145); TOTAL CARBON DIOXIDE 27.8 MMOL/L (24-32); eGFR 85 ML/MIN
[2021-09-02 14:35] LABS: TOTAL CELLS COUNTED 100
[2021-09-02 14:36] LABS: ANISOCYTOSIS 2+; ELLIPTOCYTES FEW; HYPOCHROMASIA 1+; PLATELET ESTIMATE NORMAL; SCHISTOCYTES FEW
[2021-09-02 15:00] VITALS: BP 114/75
[2021-09-02 18:00] VITALS: BP 113/77
--- NOTE | 2021-09-02 18:29 | NUR ---
Problems reprioritized. Patient report given, questions answered & plan of care reviewed with BRYSON HERNANDEZ.
--- NOTE | 2021-09-02 18:30 | NUR ---
Patient in room [facility]TH[facility] 4017. I have received report from BRYSON PATTERSON and had the opportunity to ask questions and assume patient care.
[2021-09-02 22:00] VITALS: BP 121/69
[2021-09-03 02:00] VITALS: BP 125/71
[2021-09-03] MEDS: ipratropium/albuterol 3ml nebule NEB SCH ×4 (02:17→20:29)
[2021-09-03 06:00] VITALS: BP 113/71
--- NOTE | 2021-09-03 06:15 | NUR ---
Problems reprioritized. Patient report given, questions answered & plan of care reviewed with sunita Barth.
[2021-09-03] MEDS: enoxaparin 40mg/0.4ml syringe SUBCUT SCH ×2 (07:42→19:41)
[2021-09-03] MEDS: methylPREDNISolone sod succ/PF 40mg inj. IV SCH ×2 (07:42→16:14)
[2021-09-03] MEDS: lactobacillus rhamnosus 10,000 MMU CELLS/CAPSULE PO SCH ×2 (07:43→19:42)
[2021-09-03 07:49] LABS: EOSINOPHILS % (AUTO) 0 % (0-6); LYMPHOCYTES # (AUTO) 0.2 X10'3 (1.1-4.8); WHITE BLOOD COUNT 16.1 X10'3 (4.5-11.0)
[2021-09-03 07:51] LABS: BASOPHILS % (AUTO) 0.2 % (0-1); HEMATOCRIT 35.8 % (42.0-52.0); LYMPHOCYTES % (AUTO) 1.4 % (21-51); MEAN CORPUSCULAR HEMOGLOBIN 37.6 PG (27.0-31.0); MEAN CORPUSCULAR HGB CONC 33.7 g/dL (33.0-36.5); MEAN CORPUSCULAR VOLUME 111.6 FL (78-98); MEAN PLATELET VOLUME 11.6 FL (7.4-10.4); MONOCYTES # (AUTO) 0.1 X10'3 (0-0.9); MONOCYTES % (AUTO) 0.7 % (2-12); NEUTROPHILS # (AUTO) 15.8 X10'3 (1.8-7.7); NEUTROPHILS % (AUTO) 97.7 % (42-75); PLATELET COUNT 174 X10'3 (140-440); RED BLOOD COUNT 3.21 X10'6 (4.70-6.10); RED CELL DISTRIBUTION WIDTH 18.5 % (11.5-14.5)
[2021-09-03] MEDS: fluticasone nasal spray 16GM bottle NS SCH (08:00)
[2021-09-03] MEDS: lactose-reduced food (Ensure Enlive) - 237ml bottle PO SCH ×3 (08:00→18:00)
[2021-09-03] MEDS: K and/or MAG REPLACEMENT MC SCH ×2 (08:00→20:00)
[2021-09-03 08:04] LABS: ALANINE AMINOTRANSFERASE 32 U/L (12-78); ALBUMIN/GLOBULIN RATIO 0.6 (1.1-1.5); ALKALINE PHOSPHATASE 84 IU/L (46-116); ANION GAP 7 (8-16); ASPARTATE AMINO TRANSFERASE 27 U/L (10-37); BILIRUBIN,TOTAL 1.4 MG/DL (0.1-1.0); BLOOD UREA NITROGEN 77 MG/DL (7-18); BUN/CREATININE RATIO 92.8 (5.4-32.0); C-REACTIVE PROTEIN 4.94 MG/DL (0.0-0.5); CALCIUM 7.7 MG/DL (8.5-10.1); CHLORIDE 105 MMOL/L (99-107); CREATININE 0.83 MG/DL (0.60-1.10); GLUCOSE 124 MG/DL (70-104); POTASSIUM 5.5 MMOL/L (3.5-5.1); SODIUM 138 MMOL/L (135-145); TOTAL CARBON DIOXIDE 26.5 MMOL/L (24-32); TOTAL PROTEIN 5.6 G/DL (6.4-8.2); eGFR 88 ML/MIN
[2021-09-03 08:48] LABS: D-DIMER 1.12 MG/L FEU (0-0.50)
[2021-09-03 09:15] LABS: ANISOCYTOSIS 2+; LARGE PLATELETS FEW; PLATELET ESTIMATE NORMAL
[2021-09-03 09:16] LABS: ELLIPTOCYTES FEW
[2021-09-03] MEDS: SODIUM ZIRCONIUM CYCLOSILICATE 10 GM POWD.PACK PO SCH (09:33)
[2021-09-03] MEDS ORDERED: Dextrose 10%-water IV solution 1,000 ML IV PRN (12:05)
[2021-09-03] MEDS ORDERED: magnesium Cl slow-release 64mg tablet PO PRN (12:05)
[2021-09-03] MEDS ORDERED: magnesium 2GM in 50ml NS 50 ML IV PRN (12:05)
[2021-09-03] MEDS ORDERED: magnesium 4gm in 100ml NS 100 ML IV PRN (12:05)
--- NOTE | 2021-09-03 12:22 | NUR ---
TPN Consult: Pt pending PICC placement today per EMR; addressed see prior RD note. Addendum: 09/03/21 at [address] Amended: Links added.
[2021-09-03 12:34] VITALS: BP 121/72
[2021-09-03 12:59] LABS: PHOSPHORUS 4.2 MG/DL (2.3-4.5); PREALBUMIN 11.4 MG/DL (19-36); TRIGLYCERIDES 124 MG/DL (20-135)
--- NOTE | 2021-09-03 14:15 | NUR ---
PRESSURE ULCER EDUCATION: DEFINITION: A pressure ulcer is an area of skin that breaks down when you stay in one position too long. The constant pressure against the skin reduces the blood flow to that area and the affected tissue dies. CAUSES: "Being bedridden or in a wheelchair "Fragile skin "Having a chronic condition, such as diabetes or vascular disease "Inability to move certain parts of your body without assistance "Older age "Incontinence of urine or stool SYMPTOMS: "A reddened area that DOES NOT turn white when pressed on - this can be the beginning of a pressure ulcer "A blister, deep sore or a crater - these can be advanced pressure ulcers FIRST AID: "Relieve the pressure on this area "Keep the area clean and dry "Call your primary doctor if you see any of the above symptoms "DO NOT massage the area "DO NOT use a donut shaped or ring shaped pillow- these actually interfere with the blood flow and cause complications PREVENTION: "Check for pressure ulcers everyday "Change position at least every two hours to relieve pressure "Use items that help relieve pressure- pillows, sheepskin, foam padding, and powders. "Keep skin clean and dry "Eat healthy well balanced meals "Exercise daily IF YOU SEE ANY OF THESE SYMPTOMS WHILE IN THE HOSPITAL - TELL YOUR NURSE IMMEDIATELY. IF YOU SEE ANY OF THESE SYMPTOMS WHILE AT HOME OR HAVE ANY QUESTIONS OR CONCERNS ABOUT PRESSURE ULCERS - CALL YOUR PRIMARY DOCTOR IMMEDIATELY. Addendum: 09/03/21 at 1415 by Samantha Ortiz RN Amended: Links added.
[2021-09-03 15:30] VITALS: BP 113/71
[2021-09-03 18:00] VITALS: BP 121/75
[2021-09-03] MEDS ORDERED: ZINC/COPPER/MANGANESE/SELENIUM 1 ML, chromic chloride inj. 10 MCG in AMINO ACIDS 5 %/DE... IV SCH (20:00)
[2021-09-03 22:00] VITALS: BP 111/72
[2021-09-04] MEDS: methylPREDNISolone sod succ/PF 40mg inj. IV SCH ×4 (00:02→23:47)
[2021-09-04] MEDS: ipratropium/albuterol 3ml nebule NEB SCH ×4 (01:49→19:57)
[2021-09-04 02:00] VITALS: BP 100/67
[2021-09-04 06:00] VITALS: BP 100/73
--- NOTE | 2021-09-04 06:52 | NUR ---
Patient in room [facility]TH[facility] 4017. I have received report from Renee and had the opportunity to ask questions and assume patient care.
[2021-09-04] MEDS ORDERED: MVI, adult No.4 with vit. K 10 ML in dextrose 5% water 500ml 500 ML IV SCH ×2 (08:00)
[2021-09-04] MEDS: lactose-reduced food (Ensure Enlive) - 237ml bottle PO SCH (08:00)
[2021-09-04] MEDS: K and/or MAG REPLACEMENT MC SCH ×2 (08:00→19:17)
[2021-09-04] MEDS: SODIUM ZIRCONIUM CYCLOSILICATE 10 GM POWD.PACK PO SCH (08:00)
[2021-09-04] MEDS: lactobacillus rhamnosus 10,000 MMU CELLS/CAPSULE PO SCH ×2 (08:11→20:06)
[2021-09-04] MEDS: enoxaparin 40mg/0.4ml syringe SUBCUT SCH ×2 (08:11→20:07)
--- NOTE | 2021-09-04 08:26 | NUR ---
AM labs order requested from Dr. Prajapati. Waiting for response.
[2021-09-04] MEDS: fluticasone nasal spray 16GM bottle NS SCH (08:33)
[2021-09-04 09:37] LABS: EOSINOPHILS % (AUTO) 0 % (0-6); HEMOGLOBIN 10.9 g/dl (14.0-17.9); MEAN PLATELET VOLUME 11.1 FL (7.4-10.4); RED BLOOD COUNT 3.02 X10'6 (4.70-6.10)
[2021-09-04 10:00] VITALS: BP 108/75
[2021-09-04 10:13] LABS: ALANINE AMINOTRANSFERASE 29 U/L (12-78); ALBUMIN 1.9 G/DL (3.4-5.0); ALBUMIN/GLOBULIN RATIO 0.6 (1.1-1.5); ALKALINE PHOSPHATASE 79 IU/L (46-116); ANION GAP 8 (8-16); ASPARTATE AMINO TRANSFERASE 24 U/L (10-37); BILIRUBIN,TOTAL 1.1 MG/DL (0.1-1.0); BLOOD UREA NITROGEN 77 MG/DL (7-18); BUN/CREATININE RATIO 87.5 (5.4-32.0); C-REACTIVE PROTEIN 5.21 MG/DL (0.0-0.5); CALCIUM 7.8 MG/DL (8.5-10.1); CHLORIDE 101 MMOL/L (99-107); CREATININE 0.88 MG/DL (0.60-1.10); GLUCOSE 177 MG/DL (70-104); POTASSIUM 4.6 MMOL/L (3.5-5.1); SODIUM 135 MMOL/L (135-145); TOTAL CARBON DIOXIDE 26.4 MMOL/L (24-32); TOTAL PROTEIN 5.1 G/DL (6.4-8.2); eGFR 82 ML/MIN
[2021-09-04] MEDS ORDERED: MESSAGE TO PHARMACY PO ONE (10:15)
[2021-09-04] MEDS ORDERED: glucagon, human recombinant 1mg kit SUBCUT PRN (10:15)
[2021-09-04] MEDS ORDERED: dextrose ORAL solution 15 GM/59 ML bottle PO PRN ×2 (10:15)
[2021-09-04] MEDS ORDERED: dextrose 50%-water 50ml dispensing syringe IV PRN ×2 (10:15)
[2021-09-04 10:20] LABS: ANISOCYTOSIS 2+; PLATELET ESTIMATE NORMAL; TOTAL CELLS COUNTED 100
[2021-09-04 10:21] LABS: ELLIPTOCYTES FEW; SCHISTOCYTES FEW
[2021-09-04 10:22] LABS: LARGE PLATELETS FEW
[2021-09-04 10:23] LABS: BASOPHILS # (AUTO) 0.1 X10'3 (0-0.2); BASOPHILS % (AUTO) 0.3 % (0-1); HEMATOCRIT 32.9 % (42.0-52.0); LYMPHOCYTES # (AUTO) 0.2 X10'3 (1.1-4.8); LYMPHOCYTES % (AUTO) 0.9 % (21-51); MEAN CORPUSCULAR HEMOGLOBIN 35.9 PG (27.0-31.0); MEAN CORPUSCULAR HGB CONC 33.1 g/dL (33.0-36.5); MEAN CORPUSCULAR VOLUME 108.6 FL (78-98); MONOCYTES # (AUTO) 0.1 X10'3 (0-0.9); MONOCYTES % (AUTO) 0.3 % (2-12); NEUTROPHILS # (AUTO) 23.6 X10'3 (1.8-7.7); NEUTROPHILS % (AUTO) 98.5 % (42-75); PLATELET COUNT 142 X10'3 (140-440); RED CELL DISTRIBUTION WIDTH 18.8 % (11.5-14.5)
--- NOTE | 2021-09-04 15:24 | NUR ---
F/u 09/04: Pt remains NPO on BIPAP/CPAP w/ TPN started now advancing to goal today per clinical pharmacist; electrolytes WNL outside Mg 3.0 per EMR. Glu 177-206mg/dl receiving solumedrol w/ glycemic protocol ordered today per EMR. LBM 09/01. Will continue to monitor for PN tolerance and further nutrition intervention needs this admit. Recommendations: 1) Continuous TPN per MD using 2:1 Clinimix non-E / at 88ml/hr w/ additional 250ml l20% lipids to run for 20.8ml/hr for 12hr 2x/week. In total to provide 2183ml avg volume/day, avg 2000kcals, 105g AA, 422g dextrose (3.56mg/kg/min GIR). 2) TG/PALB Q /; daily wts 3) Monitor for PN tolerance and adjustment needs 4) Bowel care per rx 5) Scaled weight this admit; weekly scaled weights thereafter 6) Once PO; Advance diet as medically indicated to regular per PSYCHIATRIC ORDERLY recs Addendum: 09/04/21 at [address] Amended: Links added.
[2021-09-04] MEDS ORDERED: LIDOcaine 2% 10ml TOPICAL JELLY (Urojet) TP ONE (16:10)
[2021-09-04] MEDS: morphine 2 MG/ML inj. syringe IV PRN (16:10)
[2021-09-04] MEDS: insulin regular, human U-100 3ml vial - multi-dose SQ SCH ×2 (16:22→20:06)
--- NOTE | 2021-09-04 16:27 | NUR ---
I spoke with DR. Calix about cruz order, patient nodded yes to cruz and Dr. Calix said okay. Also addressed code status with Dr. calix. She said when she admitted patient she discussed with him a couple times and he wanted to be full code and Dr. Delaney discussed with him yesterday as well and wanted to remain full code. Patient to remain full Code per .
[2021-09-04 18:11] VITALS: BP 125/71
--- NOTE | 2021-09-04 18:32 | NUR ---
Problems reprioritized. Patient report given, questions answered & plan of care reviewed with Brittany.
--- NOTE | 2021-09-04 18:44 | NUR ---
X 2 attempts made to insert indwelling urinary catheter with assist of charge nurse was unsuccessful.
[2021-09-04] MEDS ORDERED: ZINC/COPPER/MANGANESE/SELENIUM 1 ML, chromic chloride inj. 10 MCG in AMINO ACIDS 5 %/DE... IV SCH (20:00)
[2021-09-04] MEDS ORDERED: insulin glargine (Lantus) pen - multi-dose SQ SCH (21:00)
[2021-09-05 02:00] VITALS: BP 121/71
[2021-09-05] MEDS: insulin regular, human U-100 3ml vial - multi-dose SQ SCH (02:09)
[2021-09-05] MEDS: ipratropium/albuterol 3ml nebule NEB SCH ×3 (02:59→14:58)
[2021-09-05 05:50] LABS: BASOPHILS % (AUTO) 0 % (0-1); D-DIMER 1.47 MG/L FEU (0-0.50); EOSINOPHILS % (AUTO) 0 % (0-6)
[2021-09-05 05:52] LABS: HEMATOCRIT 33.4 % (42.0-52.0); MEAN CORPUSCULAR HGB CONC 32.9 g/dL (33.0-36.5); MEAN CORPUSCULAR VOLUME 109.5 FL (78-98); MEAN PLATELET VOLUME 11.1 FL (7.4-10.4); PLATELET COUNT 70 X10'3 (140-440); RED BLOOD COUNT 3.05 X10'6 (4.70-6.10); RED CELL DISTRIBUTION WIDTH 18.3 % (11.5-14.5)
[2021-09-05 06:03] LABS: ALANINE AMINOTRANSFERASE 26 U/L (12-78); ALBUMIN 1.8 G/DL (3.4-5.0); ALBUMIN/GLOBULIN RATIO 0.5 (1.1-1.5); ALKALINE PHOSPHATASE 78 IU/L (46-116); ANION GAP 6 (8-16); ASPARTATE AMINO TRANSFERASE 20 U/L (10-37); BILIRUBIN,TOTAL 1.3 MG/DL (0.1-1.0); BLOOD UREA NITROGEN 66 MG/DL (7-18); BUN/CREATININE RATIO 82.5 (5.4-32.0); C-REACTIVE PROTEIN 6.11 MG/DL (0.0-0.5); CALCIUM 7.5 MG/DL (8.5-10.1); CHLORIDE 104 MMOL/L (99-107); GLUCOSE 248 MG/DL (70-104); LACTATE DEHYDROGENASE 537 U/L (85-227); MAGNESIUM 2.8 MG/DL (1.5-2.4); PHOSPHORUS 2.8 MG/DL (2.3-4.5); POTASSIUM 3.7 MMOL/L (3.5-5.1); SODIUM 136 MMOL/L (135-145); TOTAL CARBON DIOXIDE 26.4 MMOL/L (24-32); TOTAL PROTEIN 5.2 G/DL (6.4-8.2); eGFR > 90 ML/MIN
[2021-09-05 06:04] LABS: WHITE BLOOD COUNT 37.2 X10'3 (4.5-11.0)
[2021-09-05 06:06] LABS: LYMPHOCYTES # (AUTO) 0.4 X10'3 (1.1-4.8); LYMPHOCYTES % (AUTO) 1.2 % (21-51); MONOCYTES # (AUTO) 0.1 X10'3 (0-0.9); MONOCYTES % (AUTO) 0.2 % (2-12); NEUTROPHILS # (AUTO) 36.6 X10'3 (1.8-7.7); NEUTROPHILS % (AUTO) 98.6 % (42-75)
--- NOTE | 2021-09-05 06:08 | NUR ---
Received critical lab value for WBC 37.2. Attempt made to notify MD Smart but unable to contact at this time. Will report critical lab value to dayshift nurse.
--- NOTE | 2021-09-05 06:11 | NUR ---
MD Smart notified of Critical lab value with no new orders at this time.
[2021-09-05 07:16] LABS: ANISOCYTOSIS 2+; PLATELET ESTIMATE DECREASED; TOTAL CELLS COUNTED 100
[2021-09-05 07:17] LABS: ELLIPTOCYTES FEW; LARGE PLATELETS FEW; SCHISTOCYTES FEW
[2021-09-05] MEDS: methylPREDNISolone sod succ/PF 40mg inj. IV SCH (07:53)
[2021-09-05] MEDS ORDERED: azithromycin/NS 500mg/250ml 250 ML IV SCH (08:00)
[2021-09-05] MEDS ORDERED: CefTRIAXone/D5W-Rocephin 1gm 50 ML IV SCH (08:00)
[2021-09-05] MEDS: lactobacillus rhamnosus 10,000 MMU CELLS/CAPSULE PO SCH (08:00)
[2021-09-05] MEDS: K and/or MAG REPLACEMENT MC SCH (08:00)
--- NOTE | 2021-09-05 08:18 | NUR ---
Paged Dr. allen about patient lactic acid is 6.3. She ordered 500ml bolus and she is going to call son Dieudonne to discuss code status with him.
[2021-09-05] MEDS ORDERED: normal saline 500ml IV soln 500 ML IV ONE (08:20)
[2021-09-05] MEDS ORDERED: enoxaparin 40mg/0.4ml syringe SUBCUT SCH (13:15)
[2021-09-05] MEDS ORDERED: methylPREDNISolone sod succ/PF 40mg inj. IV SCH (13:15)
[2021-09-05 14:46] LABS: ABG BASE EXCESS -5.3 mmol/L (-2.0-2.0); ABG HCO3 21.1 mmol/L (22.0-26.0); ABG PCO2 (T) 44.3 mmHg (35.0-48.0); ABG PO2 (T) 66.5 mmHg (75.0-100.0); ALLEN'S TEST Modified; FCOHb 0.4 % (0.0-3.9); FMetHb 0.2 % (0.0-1.5); FO2Hb 86.5 % (94-97); TOTAL HEMOGLOBIN 11.6 G/dl (14.0-18.0)
--- NOTE | 2021-09-05 16:30 | NUR ---
Patient Heart ryhtym stopped at this time naturally per telephone clerk telegraph office, pacer fired until 1657. Patient stopped breathing on- bipap approximately 15 minutes before this. Torey Noble notified, Dr. Calix notified by BRYSON Mosquera. Donor network called, patient arranged to go to [place] [facility] per torey Noble request.
--- NOTE | 2021-09-05 19:02 | NUR ---
Patient stopped breathing approximately 1630, Estelita Huffman was made aware. Son was notified.
--- NOTE | 2021-09-05 20:00 | NUR ---
Belonging bag left inside was pts jeans, long sleeve shirt, white teeshirt, slippers, car keys, 4 misc. keys cadl, [facility] wallet with $ 260 verified by myself and Dayana Rodrigez RN. There were also 2 2 dollar bills and some misc cards in brown wallet. Also a bunch of change. I will have Dayshift RN call family to retrieve items in the am.
== END 2021-09-05 18:20 | DRG 871 ==
LOC: ER 15:54 → ED HOLD 19:02 → UNDOADMIN 19:02 → ORTHO 4S 19:02 → ED HOLD 08-23 02:30 → UNDODISIN 08-26 15:27 → ORTHO 4S 08-26 16:07 → UNDOADMIN 08-26 16:07
PROVIDERS: ADMIT Internal Medicine; ATTEND Internal Medicine
PROC: 5A09357 Assistance with Respiratory Ventilation, Less than 24 Consecutive Hours, Continuous Positive Airway Pressure (ICD-10-PCS; 2021-08-22)
PROC: 5A09357 Assistance with Respiratory Ventilation, Less than 24 Consecutive Hours, Continuous Positive Airway Pressure (ICD-10-PCS; 2021-08-23)
PROC: 5A0935A Assistance with Respiratory Ventilation, Less than 24 Consecutive Hours, High Flow/Velocity Cannula (ICD-10-PCS; 2021-08-23)
PROC: 5A09357 Assistance with Respiratory Ventilation, Less than 24 Consecutive Hours, Continuous Positive Airway Pressure (ICD-10-PCS; 2021-08-25)
PROC: 5A0935A Assistance with Respiratory Ventilation, Less than 24 Consecutive Hours, High Flow/Velocity Cannula (ICD-10-PCS; 2021-08-25)
PROC: 5A0935A Assistance with Respiratory Ventilation, Less than 24 Consecutive Hours, High Flow/Velocity Cannula (ICD-10-PCS; 2021-08-26)
PROC: 5A0935A Assistance with Respiratory Ventilation, Less than 24 Consecutive Hours, High Flow/Velocity Cannula (ICD-10-PCS; 2021-08-27)
PROC: 5A09357 Assistance with Respiratory Ventilation, Less than 24 Consecutive Hours, Continuous Positive Airway Pressure (ICD-10-PCS; 2021-08-28)
PROC: 5A0935A Assistance with Respiratory Ventilation, Less than 24 Consecutive Hours, High Flow/Velocity Cannula (ICD-10-PCS; 2021-08-28)
PROC: 5A09457 Assistance with Respiratory Ventilation, 24-96 Consecutive Hours, Continuous Positive Airway Pressure (ICD-10-PCS; 2021-08-29)
PROC: 5A0935A Assistance with Respiratory Ventilation, Less than 24 Consecutive Hours, High Flow/Velocity Cannula (ICD-10-PCS; 2021-08-29)
PROC: 5A09457 Assistance with Respiratory Ventilation, 24-96 Consecutive Hours, Continuous Positive Airway Pressure (ICD-10-PCS; 2021-08-31)
PROC: 5A0935A Assistance with Respiratory Ventilation, Less than 24 Consecutive Hours, High Flow/Velocity Cannula (ICD-10-PCS; 2021-08-31)
PROC: 02HV33Z Insertion of Infusion Device into Superior Vena Cava, Percutaneous Approach (ICD-10-PCS; principal; 2021-09-03)
PROC: B548ZZA Ultrasonography of Superior Vena Cava, Guidance (ICD-10-PCS; 2021-09-03)
PROC: 5A09457 Assistance with Respiratory Ventilation, 24-96 Consecutive Hours, Continuous Positive Airway Pressure (ICD-10-PCS; 2021-09-04)
DX: A41.89 Other specified sepsis (principal); U07.1 COVID-19; J12.82 Pneumonia due to coronavirus disease 2019; J96.01 Acute respiratory failure with hypoxia; E43 Unspecified severe protein-calorie malnutrition; D61.818 Other pancytopenia; R00.0 Tachycardia, unspecified; R74.8 Abnormal levels of other serum enzymes; R74.01 Elevation of levels of liver transaminase levels; Z66 Do not resuscitate; N18.30 Chronic kidney disease, stage 3 unspecified; Z95.0 Presence of cardiac pacemaker; Z85.820 Personal history of malignant melanoma of skin; Z95.2 Presence of prosthetic heart valve; Z88.8 Allergy status to other drugs, medicaments and biological substances; I95.9 Hypotension, unspecified; E87.5 Hyperkalemia; Z68.23 Body mass index [BMI] 23.0-23.9, adult
CPT/HCPCS: 36415; 36569; 36600; 71045; 73502; 76942; 80053; 82803; 82948; 83036; 83605; 83615; 83735; 83880; 84100; 84134; 84145; 84478; 84484; 85007; 85008; 85018; 85025; 85379; 86140; 87040; 87081; 87502; 87503; 87635; 93005; 93306; 94640; 94660; 94760; 96365; 96375; 97110; 97161; 97530; 99285; C1751; C9803; G0378; J0456; J0696; J1100; J1644; J1650; J1815; J2060; J2270; J2920; J2930; J3490; J7030; J7040; J7060